=== PATIENT | male | born 1960 ===

== ENCOUNTER 2017-01-31 09:51 | Day surgery (SDC) | payer MEDICAID ==
[2017-01-31] MEDS ORDERED: Bupivacaine HCl 0.25% PF (10 ml) Inj ONE (10:21)
[2017-01-31] MEDS ORDERED: MethylPREDNISolone Depo 40 mg/ml Inj ONE (10:21)
[2017-01-31] MEDS ORDERED: Iohexol 300 10 ML ONE (10:21)
[2017-01-31] MEDS ORDERED: Lidocaine 1% Inj (20ml) ONE (10:22)
[2017-01-31 10:23] VITALS: BMI 31.6
[2017-01-31] MEDS ORDERED: Lactated Ringer's 1,000 ML IV ONE (11:05)
[2017-01-31] MEDS ORDERED: Lactated Ringer's 1,000 ML IV SCH (11:26)
[2017-01-31] MEDS ORDERED: HYDROmorphone 0.5 mg/0.5 ml ISec IVP PRN (11:26)
[2017-01-31 12:08] VITALS: PULSE 58
--- NOTE | 2017-01-31 12:27 | OP ---
PROCEDURE DATE: 01/31/2017 PROCEDURE: Bilateral lumbar medial nerve branch blocks at bilateral L3-L4, L4- L5, L5-S1 under fluoroscopic guidance. COMPLICATIONS: None. EXPECTED BLOOD LOSS: None. PREOPERATIVE DIAGNOSIS: Lumbar spondylosis. POSTOPERATIVE DIAGNOSIS: Lumbar spondylosis. After informed consent was obtained, the patient was brought to the OR and placed on the table in prone position. All pressure points were padded, and sedation was administered by anesthesia. The lumbosacral spine was then prepped with iodine x 3 and draped in normal sterile fashion. One mL of 1% lidocaine was used for each injection site. Skin wheals were created with a 25 gauge needle. X-ray in the AP view was used to identify the intersection between the right L3-L4 superior articular process and transverse process. A 22 gauge 3-1/2 inch spinal needle was placed to bony contact at this junction. There was no paresthesia during placement of the needle. After negative aspiration for heme or CSF, 1 mL of 1% lidocaine and Depo-Medrol was easily instilled at this point. This procedure was repeated for the right L4-L5, right L5-S1 and left L3-L4, L4-L5 and L5-S1 facet joints. Depo-Medrol 80 mg was used for the case. There was no paresthesia during the procedure. The patient was brought to stage II recovery room with bilateral lower extremity motor and sensory intact. Raymond Hoover MD cc: [id number] TT: 01/31/2017 12:27:24 en MTDD
[2017-01-31 12:39] VITALS: O2SAT 97
[2017-01-31 12:40] VITALS: BP 141/78; RESP 18; TEMP 98
--- NOTE | 2017-01-31 14:50 | RAD ---
PROCEDURE: Lumbar Epidural Injection yes HISTORY: EPIDURAL TECHNIQUE: Fluoroscopic guidance was provided for epidural injection for pain management purposes. FINDINGS: IMPRESSION: Fluoroscopic guidance provided for epidural injection. Please refer procedure.
== END 2017-01-31 13:05 | disposition home or self-care (01) ==
LOC: H.OPSURG 09:51
PROVIDERS: ATTEND Anesthesiology Pain Medicine
DX: M47.816 Spondylosis without myelopathy or radiculopathy, lumbar region (principal); E11.9 Type 2 diabetes mellitus without complications; E78.5 Hyperlipidemia, unspecified; I10 Essential (primary) hypertension

== ENCOUNTER 2017-04-05 07:22 | Day surgery (SDC) | payer MEDICAID ==
[2017-03-31 11:52] VITALS: RESP 18
[2017-03-31 11:53] VITALS: BMI 30.4
[2017-04-05] MEDS ORDERED: Lactated Ringer's 1,000 ML IV ONE ×2 (08:50→14:45)
[2017-04-05] MEDS ORDERED: Propofol 10 mg/ml Inj (20 ML) ONE (11:12)
[2017-04-05] MEDS ORDERED: Lidocaine Hydrochloride 5 ML INJ ONE (11:13)
[2017-04-05] MEDS ORDERED: Midazolam 2 MG/2 ML VIAL ONE (11:13)
[2017-04-05] MEDS ORDERED: Succinylcholine 200 mg/10 ml Inj IV ONE (11:13)
[2017-04-05] MEDS ORDERED: Lidocaine 4% (Laryng-O-Jet) Kit MM ONE (11:13)
[2017-04-05] MEDS ORDERED: Lidocaine 2% w Epi 1:100,000 Inj IJ ONE (12:34)
--- NOTE | 2017-04-05 12:45 | PCM.SURG1 ---
Surgeon's Initial Post Op Note - Surgeon's Notes Surgeon: Tamara Rosario MD Professional Builder: CHEL Singh Type of Anesthesia: General Endo Pre-Operative Diagnosis: Right shoulder osteoarthritis Operative Findings: See op report Post-Operative Diagnosis: Same as pre-op dx Operation Performed: Right total shoulder replacement Specimen/Specimens Removed: Right shoulder humeral head, soft tissue Estimated Blood Loss: EBL {In ML}: 150 Date of Surgery/Procedure: 04/05/17 Time of Surgery/Procedure: 10:30
[2017-04-05] MEDS ORDERED: Oxycodone/Acetaminophen 5/325 mg Tab PO PRN ×2 (12:46→14:04)
[2017-04-05] MEDS ORDERED: methylPREDNISolone Depo 80 mg/ml Inj ONE (13:29)
[2017-04-05] MEDS ORDERED: HYDROmorphone 0.5 mg/0.5 ml ISec ONE (13:56)
[2017-04-05] MEDS ORDERED: HYDROmorphone 0.5 mg/0.5 ml ISec IVP PRN (13:56)
[2017-04-05] MEDS ORDERED: Lactated Ringer's 1,000 ML IV SCH (13:56)
--- NOTE | 2017-04-05 14:04 | PCM.SURG1 ---
Surgeon's Initial Post Op Note - Surgeon's Notes Surgeon: Tamara Rosario MD Commercial Real Estate Broker: Mulu Oleary PA-C Type of Anesthesia: General Endo Pre-Operative Diagnosis: Right knee Meniscus tear Operative Findings: see op report Post-Operative Diagnosis: same as pre-op dx Operation Performed: Right knee arthroscopy, partial medial and lateral meniscectomy, lysis of adhesions, synovectomy and debriedement Specimen/Specimens Removed: none Estimated Blood Loss: EBL {In ML}: 5 Date of Surgery/Procedure: 04/05/17 Time of Surgery/Procedure: 13:00
[2017-04-05 16:03] VITALS: BP 113/77; PULSE 82; TEMP 98.8; O2SAT 96
[2017-04-05] MEDS ORDERED: Clindamycin 600 MG in Sodium Chloride 0.9% 100 ML IVPB ONE (18:30)
[2017-04-05] MEDS ORDERED: oxyCODONE 10 mg ER Tab (oxyCONTIN) PO SCH (21:00)
[2017-04-06] MEDS ORDERED: Clindamycin 600 MG in Sodium Chloride 0.9% 100 ML IVPB ONE (02:30)
--- NOTE | 2017-04-06 14:30 | OP ---
DATE OF PROCEDURE: 04/05/2017 ATTENDING PHYSICIAN: Tamara Rosario MD YACHT MASTER: Mulu Oleary PA-C PREOPERATIVE DIAGNOSES: 1. Right knee lateral meniscal tear. 2. Synovitis. 3. Effusion. POSTOPERATIVE DIAGNOSES: 1. Right knee medial and lateral meniscal tear. 2. Major synovitis. 3. 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 4. Patellofemoral effusion. PROCEDURE: 1. Right knee major synovectomy. 2. Partial medial and lateral meniscectomy. 3. Chondroplasty, lateral femoral condyle. 4. Anterior lysis of adhesion without manipulation. 5. Large joint injections. EBL: 5 mL. SPECIMEN: None. COMPLICATIONS: None. INDICATIONS: After failing a course of non-operative therapy, the patient elected to undergo the above procedure. In the office, the risks and possible complications of knee arthroscopy were discussed in detail with the patient. These risks include but are not limited to continued pain, lack of motion, infection, vascular injury, DVT / PE, nerve injury including peroneal nerve dysfunction, reflex sympathetic dystrophy, compartment syndrome, unforeseen medical and/or anesthesia complications, limb loss, and even . The patient expressed an understanding of the risks and possible benefits of the procedure, and is also aware of the alternatives to surgery. An informed consent was obtained, and was checked immediately pre-op. PROCEDURE: The patient was correctly identified in the holding area and the right knee was marked with the surgeons initials. The patient was transported to the operating room and placed in the supine position, general anesthesia was obtained, a pre-operative orthopaedic exam revealed effusion of 1+. Range of motion 0 to 120. The lower extremity was prepped and draped in the standard fashion, and the thigh was placed in an arthroscopic leg pierce. A well-padded tourniquet was applied to the patient's thigh. Time out was completed confirming the correct operative site. Esmarch was used to exsanguinate the leg and tourniquet was inflated to 300 mmhg. A standard anterolateral viewing portals were made with a #11 blade after sub-dermal 1% Lidocaine with Epinephrine injection. The knee was distended with normal saline and epinephrine in a 1:1,000,000 mixture, at an initial pressure of 35mmHg. The arthroscope was inserted from the anterolateral portal and moved into the medial compartment. Next, the anteromedial working portal was made with spinal needle localization. The arthroscopic probe was inserted, and all compartments of the knee were sequentially visualized. FINDINGS: Arthroscopic examination of the knee revealed: 1. Tear of the posterior horn of the medial meniscus. 2. Tear of the body of the lateral meniscus. 3. 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 4. Major synovitis for all three compartments. 5. Anterior patellofemoral adhesions, ACL and PCL were intact. Partial medial meniscectomy was performed with a combination of hand instruments and a 4.0 mm motorized shaver. The meniscus was debrided to a smooth, stable border with an excursion of less than 3 mm. Partial lateral meniscectomy was performed with a combination of hand instruments and a 4.0 mm motorized shaver. The meniscus was debrided to a smooth, stable border with an excursion of less than 5 mm. The motorized shaver was used to mechanically debride the loose, fibrillated and fragmented chondral edges of the lateral femoral condyle to a stable border. Extreme care was taken to not disrupt the adjacent chondral surface. The edges of injured chondral area were probed to ensure stability after the shaver was withdrawn from the knee. The motorized shaver was used to perform a synovectomy of the medial, lateral and patellofemoral compartments. The hypertrophic synovium was resected with minimal bleeding. No synovial incarceration was noted after synovectomy when the knee was put through a full passive range of motion. Due to injuries to the patellofemoral region resulting in organized scar and suprapatellar adhesions, a decision was made to perform and anterior interval release to decrease the patellofemoral joint reaction force and relieve pressures over the patella and trochlea. The synovectomy was carried over to the suprapatellar pouch and an anterior interval release was performed over the anterior compartment and the suprapatellar pouch with the motorized shaver. The anterior fat pad was released and debulked during this procedure. The inflow was shut off and the area checked for hemostasis. Small bleeders were coagulated with the radiofrequency device. Finally, 1 mL of 40 mg Depomedrol mixed with 9 mL of 0.25% Marcaine was injected within the knee joint. Post operatively, the patient will be weight bearing as tolerated and will utilize my standard post arthroscopy rehab protocol. The patient will be started on straight leg raising and quadriceps setting exercises in the recovery room and will progress to prone hangs as well as prone knee flexion exercises using an active assisted construct. During this procedure, I was assisted by Mulu Oleary, who assisted in positioning the patient on the operating room table as well as transferring the patient from the operating room table to the recovery room stretcher. In addition, Mulu Oleary, assisted me during the actual operative procedure by positioning the patient's extremity to allow for easier arthroscopic access to all areas of the joint. The presence of Mulu Oleary, as my operative acute care certified nursing assistant was medically necessary to ensure the utmost safety of the patient in the pre, intra-, and post-operative periods. Tamara Rosario MD
== END 2017-04-05 16:14 | disposition home or self-care (01) ==
LOC: H.OPSURG 07:22
PROVIDERS: ATTEND Orthopaedic Surgery
DX: S83.206A Unspecified tear of unspecified meniscus, current injury, right knee, initial encounter (principal); X58.XXXA Exposure to other specified factors, initial encounter; E78.5 Hyperlipidemia, unspecified; I10 Essential (primary) hypertension; F41.8 Other specified anxiety disorders

== ENCOUNTER 2018-06-29 10:03 | Day surgery (SDC) | payer MEDICAID ==
[2018-04-13 13:35] VITALS: BMI 34.4
[2018-06-29] MEDS ORDERED: Lactated Ringer's 500 ML IV ONE (10:31)
[2018-06-29] MEDS ORDERED: Propofol 10 mg/ml Inj (20 ML) ONE (11:26)
[2018-06-29 11:47] VITALS: TEMP 98
[2018-06-29 12:03] VITALS: BP 114/76; PULSE 74; RESP 18; O2SAT 99
== END 2018-06-29 12:20 | disposition home or self-care (01) ==
LOC: H.ENDO 10:03
PROVIDERS: ATTEND Internal Medicine Gastroenterology
DX: K22.8 Other specified diseases of esophagus (principal); K31.89 Other diseases of stomach and duodenum; R12 Heartburn; R14.0 Abdominal distension (gaseous); E78.5 Hyperlipidemia, unspecified; E11.9 Type 2 diabetes mellitus without complications; I10 Essential (primary) hypertension; G47.33 Obstructive sleep apnea (adult) (pediatric)
CPT/HCPCS: 43239; 88305; J2001; J2704; J7120

== ENCOUNTER 2018-07-03 10:36 | Emergency (ER) | payer MEDICAID ==
[2018-07-03] MEDS ORDERED: Albuterol-Ipratrop 3 mg / 0.5 (3 ml) UD ONE (10:43)
[2018-07-03 11:17] LABS: BASO # 0.1 K/uL (0.0-0.2); BASO % 0.7 % (0.0-2.0); EOS # 0.1 K/uL (0.0-0.7); EOS % 1.8 % (0.0-4.0); HEMOGLOBIN 14.5 g/dL (12.0-18.0); LYMPH # 1.8 K/uL (1.0-4.3); LYMPH % 24.5 % (20.0-40.0); MEAN CORPUSCULAR HEMOGLOBIN 29.5 pg (27.0-31.0); MEAN CORPUSCULAR HGB CONC 33.2 g/dL (33.0-37.0); MEAN PLATELET VOLUME 10.4 fl (7.2-11.7); MONO # 0.7 K/uL (0.0-0.8); MONO % 9.2 % (0.0-10.0); NEUT # 4.8 K/uL (1.8-7.0); NEUT % 63.8 % (50.0-75.0); RBC 4.91 Mil/uL (4.40-5.90); RED CELL DISTRIBUTION WIDTH 13.1 % (11.5-14.5); WHITE BLOOD COUNT 7.5 K/uL (4.8-10.8)
[2018-07-03] MEDS ORDERED: Albuterol-Ipratrop 3 mg / 0.5 (3 ml) UD INH STA (11:17)
[2018-07-03 11:37] LABS: PROTHROMBIN TIME 11.6 Seconds (9.8-13.1)
[2018-07-03 11:43] LABS: ALBUMIN 3.9 g/dL (3.5-5.0); ALT/SGPT 40 U/L (21-72); AST/SGOT 24 U/L (17-59); BLOOD UREA NITROGEN 15 mg/dl (9-20); CALCIUM 8.8 mg/dL (8.4-10.2); GFR NON-AFRICAN AMERICAN > 60; LIPASE 379 U/L (23-300)
[2018-07-03 11:47] VITALS: O2SAT 98
[2018-07-03 11:50] LABS: B-TYPE NATRIURETIC PEPTIDE 19.2 pg/ml (0-900)
--- NOTE | 2018-07-03 12:27 | ED PDOC ---
Syncope/Near Syncope/Dizziness Time Seen by Provider: 07/03/18 10:43 Chief Complaint (Nursing): Dizziness/Lightheaded Chief Complaint (Provider): Dizziness/Lightheaded History Per: Patient Additional Complaint(s): Eugene Saldana is a 57 year old male with a past medical history of HTN, hypercholesterolemia, and cardiac arrhythmia, who presents to the emergency department complaining of dizziness and shortness of breath, associated with chest pain located in the middle of the chest, prior to arrival. 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 He reports that prior to procedure he felt dizziness and was out of breath. The resident has stated that patient's blood pressure was 180/70. He further states that his chest pain is not radiating anywhere, vitals are on monitor and are within normal limits. Patient states he was going through medical work up and had a syncopal episode on mother's day. PMD: Jose Aguilar Past Medical History Reviewed: Historical Data, Nursing Documentation, Vital Signs Vital Signs: Last Vital Signs Temp 97.7 F 07/03/18 10:47 Pulse 80 07/03/18 11:46 Resp 16 07/03/18 11:46 BP 130/68 07/03/18 11:46 Pulse Ox 98 07/03/18 11:46 - Medical History PMH: Anxiety, Arthritis, Cardia Arrhythmia, Depression, HTN, Hyp ercholesterolemia, Schizophrenia Denies: Chronic Kidney Disease - Surgical History Surgical History: No Surg Hx Denies: Pacemaker - Family History Family History: States: Unknown Family Hx - Home Medications Home Medications: Ambulatory Orders Medication Instructions Recorded Sertraline [Zoloft] 200 mg PO HS 12/22/15 LORazepam [Ativan] 1 mg PO HS PRN 01/31/17 Atorvastatin [Lipitor] 10 mg PO HS 04/17/18 metFORMIN [glucOPHAGE] 500 mg PO BID 04/17/18 Losartan/Hydrochlorothiazide 1 tab PO DAILY 07/03/18 [Hyzaar 100-25 Tablet] Prazosin HCl [Minipress] 2 mg PO HS 07/03/18 Quetiapine Fumarate [Seroquel] 400 mg PO HS 07/03/18 - Allergies Allergies/Adverse Reactions: Allergies Allergy/AdvReac Type Severity Reaction Status Date / Time Penicillins Allergy ANAPHYLAXIS Verified 07/03/18 10:47 Review of Systems ROS Statement: Except As Marked, All Systems Reviewed And Found Negative Cardiovascular: Positive for: Chest Pain (middle of chest ) Respiratory: Positive for: Shortness of Breath Neurological: Positive for: Dizziness Physical Exam - Reviewed Nursing Documentation Reviewed: Yes Vital Signs Reviewed: Yes - Physical Exam Appears: Positive for: No Acute Distress (anxious ) Head Exam: Positive for: ATRAUMATIC, NORMOCEPHALIC Skin: Positive for: Normal Color, Warm, Dry Eye Exam: Positive for: Normal appearance, EOMI, PERRL ENT: Positive for: Normal ENT Inspection Neck: Positive for: Normal, Painless ROM, Supple Cardiovascular/Chest: Positive for: Regular Rate, Rhythm. Negative for: Murmur Respiratory: Positive for: Normal Breath Sounds. Negative for: Respiratory Distress Gastrointestinal/Abdominal: Positive for: Normal Exam, Soft Extremity: Positive for: Normal ROM. Negative for: Swelling, Other (cyanosis or pain) Neurologic/Psych: Positive for: Alert, Oriented (x3) - Laboratory Results Result Diagrams: 07/03/18 10:50 07/03/18 11:25 - ECG O2 Sat by Pulse Oximetry: 98 (RA) Pulse Ox Interpretation: Normal Medical Decision Making Medical Decision Making: Initial Time: 10:47 A/P: Work up for pulmonary vs. cardiac etiology. Patient is on oxygen via nasal cannula 2L. Provider has ordered an EKG, Chest x-ray, and labs including cardiac enzymes. Provider will reassess patient. Plan: --EKG --B-Type Natriuretic Peptide --CMP --Lipase --Magnesium --Phosphorous --CBC with differential --PPT --Prothrombin time --Glucose --Chest X-ray --Accucheck --Peak Flow Pre/Post Tx Medications: --Duoneb 3 mg/0.5 mg (3 ml) UD ------- Scribe Attestation: Documented by Iván Sanders, acting as a scribe for Farideh Mcghee MD. Provider Scribe Attestation: All medical record entries made by the Scribe were at my direction and personally dictated by me. I have reviewed the chart and agree that the record accurately reflects my personal performance of the history, physical exam, medical decision making, and the department course for this patient. I have also personally directed, reviewed, and agree with the discharge instructions and disposition. Time: 1422 -- Labs within normal limits. CXR results normal with no acute findings. Troponin undetectable. Heart Score of 3. At this time, patient is stable for discharge home. Discussed return parameters with patient. Patient given referral for a camera systems engineer. Patient to reschedule pulmonary function test and follow up with PMD for further management. Scribe Attestation: Documented by Leela Tucker, acting as a scribe for Farideh Mcghee MD. Disposition - Clinical Impression Clinical Impression: Dizzy spells, Chest pain - Patient ED Disposition Is Patient to be Admitted: No Counseled Patient/Family Regarding: Studies Performed, Diagnosis, Need For Followup - Disposition Referrals: Sobeida Greenwood MD [Staff Provider] - Disposition: Routine/Home Disposition Time: 14:22 Condition: IMPROVED Additional Instructions: Follow up with primary medical doctor and camera systems engineer as referred. Return to the emergency department if symptoms return or new symptoms develop. Instructions: Chest Pain (DC) Forms: [employer] (Yakut) Print Language: MAURITIAN
--- NOTE | 2018-07-03 13:52 | RAD ---
Date of service: 07/03/2018 HISTORY: possible admission COMPARISON: 03/31/2017 FINDINGS: LUNGS: No active pulmonary disease. PLEURA: No significant pleural effusion identified, no pneumothorax apparent. CARDIOVASCULAR: No radiographic findings to suggest acute or significant cardiovascular disease. OSSEOUS STRUCTURES: No significant abnormalities. VISUALIZED UPPER ABDOMEN: Normal. OTHER FINDINGS: None. IMPRESSION: No active disease. No significant interval change compared to the prior examination(s).
[2018-07-03 14:33] VITALS: BP 144/76; PULSE 81; RESP 18; TEMP 98.1
--- NOTE | 2018-07-03 22:21 | CARD ---
APPROVED REPORT Date of service: 07/03/2018 EKG Measurement Heart [id number] <Conclusion> Normal sinus rhythm Nonspecific T wave abnormality Abnormal ECG
--- NOTE | 2018-07-03 22:23 | CARD ---
APPROVED REPORT Date of service: 07/03/2018 EKG Measurement Heart [id number] <Conclusion> Normal sinus rhythm Normal ECG
== END 2018-07-03 14:34 | disposition home or self-care (01) ==
LOC: H.ER 10:36
DX: R07.89 Other chest pain (principal)

== ENCOUNTER 2018-07-13 10:36 | Day surgery (SDC) | payer MEDICAID ==
[2018-07-13] MEDS ORDERED: Lactated Ringer's 500 ML IV ONE (11:27)
[2018-07-13] MEDS ORDERED: Propofol 10 mg/ml Inj (20 ML) ONE (12:17)
[2018-07-13 12:58] VITALS: TEMP 98
[2018-07-13 13:07] VITALS: BP 115/66; PULSE 71; RESP 16; O2SAT 98
== END 2018-07-13 13:40 | disposition home or self-care (01) ==
LOC: H.ENDO 10:36
PROVIDERS: ATTEND Internal Medicine Gastroenterology
DX: Z86.010 Personal history of colon polyps (principal); K64.0 First degree hemorrhoids; E11.9 Type 2 diabetes mellitus without complications
CPT/HCPCS: 82948; G0105; J2001; J2704; J7120